=== PATIENT | male | born 1990 | race African-American/Black ===

== ENCOUNTER 2017-02-26 21:44 | Emergency (ER) | payer OTHER ==
[~2017-02-26] VITALS: Ht 172.7 cm; Wt 90.7 kg
[~2017-02-26 21:44] MED LIST: BACTRIM DS 8001 TA1 PO
[2017-02-26] MEDS ORDERED: CEPHALEXIN500 M1 PO (23:32)
== END 2017-02-27 00:47 | disposition home or self-care (01) ==
LOC: ED 21:44
DX: S61.432A Puncture wound without foreign body of left hand, initial encounter (principal); W26.0XXA Contact with knife, initial encounter; Y93.89 Activity, other specified; Y92.89 Other specified places as the place of occurrence of the external cause; Y99.8 Other external cause status

== ENCOUNTER 2018-04-03 09:02 | Emergency (ER) | payer OTHER ==
[~2018-04-03] VITALS: Ht 175.2 cm; Wt 90.7 kg
[~2018-04-03 09:02] MED LIST changes: +CEPHALEXIN500 M1 PO
[2018-04-03] MEDS ORDERED: NAPROSYN500 MG PO (10:14)
== END 2018-04-03 10:25 | disposition home or self-care (01) ==
LOC: ED 09:02
DX: S93.401A Sprain of unspecified ligament of right ankle, initial encounter (principal); S70.01XA Contusion of right hip, initial encounter; F17.200 Nicotine dependence, unspecified, uncomplicated; V29.9XXA Motorcycle rider (driver) (passenger) injured in unspecified traffic accident, initial encounter; Y93.I9 Activity, other involving external motion; Y92.828 Other wilderness area as the place of occurrence of the external cause; Y99.8 Other external cause status